=== PATIENT | female | born 1985 | race Caucasian/White ===

== ENCOUNTER 2017-03-26 22:16 | Emergency (ER) | payer BC ==
[~2017-03-26] VITALS: Ht 157.5 cm; Wt 116.0 kg
[2017-03-26 23:16] LABS: PATH.CAST-FLAG NOT PRESENT; SPERM-FLAG NOT PRESENT; SRC-FLAG NOT PRESENT; XTAL-FLAG NOT PRESENT; YLC-FLAG NOT PRESENT
[2017-03-26 23:21] LABS: BLOOD UREA NITROGEN 8 mg/dL (7-18)
[2017-03-27 00:49] VITALS: BP 112/74
== END 2017-03-27 00:51 | disposition home or self-care (01) ==
LOC: ED 23:59
DX: N30.00 Acute cystitis without hematuria (principal)
CPT/HCPCS: 36415; 71010; 80048; 81001; 82040; 84484; 84703; 85025; 93005

== ENCOUNTER 2018-09-27 03:05 | Day surgery (SDC) | payer BC, OTHER ==
[~2018-09-27] VITALS: Ht 160 cm; Wt 119.2 kg
[2018-09-27] MEDS ORDERED: HYDROcodone/APAP 5/325 TABLET ONE (03:25)
[2018-09-27] MEDS ORDERED: ONDANSETRON ODT 4 MG ONE (03:25)
[2018-09-27] MEDS ORDERED: MAALOX/HYOSCYAMINE/LIDOCAINE 45 ML BTL ONE (03:25)
[2018-09-27] MEDS ORDERED: ONDANSETRON ODT 4 MG PO ONE (03:30)
[2018-09-27] MEDS ORDERED: MAALOX/HYOSCYAMINE/LIDOCAINE 45 ML BTL PO ONE (03:30)
[2018-09-27] MEDS ORDERED: HYDROcodone/APAP 5/325 TABLET PO ONE (03:30)
[2018-09-27 03:37] LABS: BASOPHILS # (AUTO) 0.09 x10^3/uL (0-0.1); BASOPHILS % (AUTO) 1 % (0-1); EOSINOPHILS # (AUTO) 0.19 x10^3/uL (0-0.4); EOSINOPHILS % (AUTO) 2 % (1-7); LYMPHOCYTES # (AUTO) 3.81 x10^3/uL (1-3.4); LYMPHOCYTES % (AUTO) 31 % (22-44); MD NO; MEAN CORPUSCULAR HEMOGLOBIN 31.8 pg (27.0-34.8); MEAN CORPUSCULAR VOLUME 96.2 fL (80-100); MONOCYTES # (AUTO) 0.98 x10^3/uL (0.2-0.8); MONOCYTES % (AUTO) 8 % (2-9); NEUTROPHILS # (AUTO) 7.29 x10^3/uL (1.8-6.8); NEUTROPHILS % (AUTO) 59 % (42-75); PLATELET COUNT 273 x10^3/uL (130-400); RED BLOOD COUNT 4.64 x10^6/uL (3.82-5.3); RED CELL DISTRIBUTION WIDTH 13.6 % (9.6-15.2)
[2018-09-27 03:50] LABS: ALANINE AMINOTRANSFERASE 41 U/L (12-78); ALBUMIN 3.5 g/dL (3.4-5.0); ANION GAP 8 mmol/L (5-15); CALCIUM 8.6 mg/dL (8.5-10.1); CHLORIDE 108 mmol/L (98-107)
[2018-09-27 03:55] LABS: ALKALINE PHOSPHATASE 63 U/L (45-117); BILIRUBIN,TOTAL 0.5 mg/dL (0.2-1.0)
[2018-09-27] MEDS ORDERED: ONDANSETRON 2MG/ML, 2ML IVPush ONE (05:00)
[2018-09-27] MEDS ORDERED: SODIUM CHLORIDE FLUSH 10ML SYR IVF ONE (05:00)
[2018-09-27] MEDS ORDERED: MORPHINE SULFATE 4 MG/ML, 1ML IVPush PRN ×2 (05:00→11:00)
[2018-09-27] MEDS ORDERED: SODIUM CHLORIDE 0.9% 1,000ML IVBOLUS ONE (05:00)
[2018-09-27] MEDS ORDERED: SODIUM CHLORIDE 0.9% 1,000 ML IV ONE (05:08)
[2018-09-27] MEDS ORDERED: ONDANSETRON 2MG/ML, 2ML ONE ×2 (05:12→08:58)
[2018-09-27] MEDS ORDERED: CEFOTETAN PMX 1GM/50ML 50 ML ONE (05:13)
[2018-09-27] MEDS ORDERED: MORPHINE SULFATE 4 MG/ML, 1ML ONE ×2 (05:13→11:15)
[2018-09-27] MEDS ORDERED: SODIUM CHLORIDE FLUSH 10ML SYR IVF PRN (05:30)
[2018-09-27] MEDS ORDERED: ONDANSETRON 2MG/ML, 2ML IVPush PRN (05:30)
[2018-09-27] MEDS ORDERED: CEFOTETAN PMX 1GM/50ML 50 ML IV ONE (05:30)
[2018-09-27] MEDS ORDERED: HYDROmorphone 1 MG/ML, 1ML IVPush PRN (05:30)
[2018-09-27] MEDS ORDERED: PROMETHAZINE 25 MG/ML, 1ML IM PRN (05:30)
[2018-09-27 06:02] VITALS: BP 112/76
[2018-09-27] MEDS ORDERED: HYDROmorphone 2 MG/ML, 1ML ONE (06:16)
[2018-09-27 07:38] VITALS: BP 101/62
[2018-09-27] MEDS ORDERED: FENTANYL PF 250 MCG/5ML ONE (08:57)
[2018-09-27] MEDS ORDERED: MIDAZOLAM 1 MG/ML, 2ML ONE (08:57)
[2018-09-27] MEDS ORDERED: CEFAZOLIN 1,000 MG ONE (08:58)
[2018-09-27] MEDS ORDERED: SUCCINYLCHOLINE 20 MG/ML, 10ML ONE (08:58)
[2018-09-27] MEDS ORDERED: GLYCOPYRROLATE 0.2MG/1ML, 5ML ONE (08:58)
[2018-09-27] MEDS ORDERED: DEXAMETHASONE 4 MG/ML, 1ML ONE (08:58)
[2018-09-27] MEDS ORDERED: NEOSTIGMINE 1 MG/ML, 10ML ONE (08:58)
[2018-09-27] MEDS ORDERED: PROPOFOL 10 MG/ML, 20ML ONE (08:58)
[2018-09-27] MEDS ORDERED: ROCURONIUM 10MG/ML,5ML ONE (08:58)
[2018-09-27] MEDS ORDERED: BUPIVACAINE/PF 0.5% ONE ×2 (09:01→09:05)
[2018-09-27] MEDS ORDERED: EPINEPHRINE 1 MG/ML, 1ML ONE (09:01)
[2018-09-27] MEDS ORDERED: OXYcodone 5 MG/5 ML ORAL.SOL UDC ONE (10:59)
[2018-09-27] MEDS ORDERED: FENTANYL PF 100 MCG/2ML ONE (10:59)
[2018-09-27] MEDS ORDERED: DIAZEPAM 5 MG/ML, 2ML IVPush PRN (11:00)
[2018-09-27] MEDS ORDERED: ONDANSETRON 2MG/ML, 2ML IV PRN (11:00)
[2018-09-27] MEDS ORDERED: OXYcodone 5 MG/5 ML ORAL.SOL UDC PO PRN (11:00)
[2018-09-27] MEDS ORDERED: hydrALAzine 20 MG/ML, 1ML IV PRN (11:00)
[2018-09-27] MEDS ORDERED: LABETALOL 5MG/ML, 20ML IV PRN (11:00)
[2018-09-27] MEDS ORDERED: LORazepam 2 MG/ML, 1ML IVPush PRN (11:00)
[2018-09-27] MEDS ORDERED: ACETAMINOPHEN 325 MG TABLET PO PRN (11:00)
[2018-09-27] MEDS ORDERED: PROCHLORPERAZINE 5 MG/ML, 2ML IM PRN (11:00)
[2018-09-27] MEDS ORDERED: ONDANSETRON ODT 8 MG PO PRN (11:00)
[2018-09-27] MEDS: FENTANYL PF 100 MCG/2ML IV PRN ×2 (11:08→11:14)
[2018-09-27 12:05] VITALS: BP 119/76
[2018-09-27] MEDS ORDERED: OXYC-302 PO (12:12)
[2018-09-27 17:15] VITALS: BP 124/80
== END 2018-09-27 18:00 | disposition home or self-care (01) ==
LOC: ED 05:26 → EDIP 05:32 → UNDOADMIN 05:32 → OR 05:32 → EDIP 05:39 → 4NOR 05:39 → UNDODISIN 17:15 → OR 18:00
PROVIDERS: ATTEND Surgery
DX: K80.10 Calculus of gallbladder with chronic cholecystitis without obstruction (principal); E66.01 Morbid (severe) obesity due to excess calories; Z68.42 Body mass index [BMI] 45.0-49.9, adult; Z72.89 Other problems related to lifestyle
CPT/HCPCS: 36415; 47562; 76700; 80053; 83690; 84703; 85025; 86677; 88304; 93005; 96374; 96375; 99285; J0171; J0330; J0690; J1100; J1170; J2250; J2405; J2704; J2710; J3010; J3490; J7030; Q0162; G0378

== ENCOUNTER 2019-07-03 13:54 | Emergency (ER) | payer OTHER ==
[~2019-07-03] VITALS: Ht 160 cm; Wt 115.0 kg
[2019-07-03 13:58] VITALS: BP 120/78
== END 2019-07-03 15:32 | disposition home or self-care (01) ==
LOC: ED 14:37
DX: R19.7 Diarrhea, unspecified (principal); R11.0 Nausea
CPT/HCPCS: 36415; 80053; 84703; 85025; 99283

== ENCOUNTER → 2020-05-10 | Outpatient (CLI) | payer OTHER ==
[~2020-05-10] MED LIST: OMNIPAQUE 350 MG/ML, 100ML BOTTLE ONE; OXYC-302 PO
== END | disposition home or self-care (01) ==
LOC: CFH 08:18
PROVIDERS: ATTEND Surgery
DX: R10.9 Unspecified abdominal pain (principal); M25.78 Osteophyte, vertebrae; M48.061 Spinal stenosis, lumbar region without neurogenic claudication; Z90.49 Acquired absence of other specified parts of digestive tract
CPT/HCPCS: 74177; Q9967

== ENCOUNTER 2020-12-06 22:50 | Emergency (ER) | payer OTHER ==
[~2020-12-06] VITALS: Ht 160 cm; Wt 123.0 kg
[~2020-12-06 22:50] MED LIST changes: -OMNIPAQUE 350 MG/ML, 100ML BOTTLE ONE
[2020-12-06 23:49] LABS: ALANINE AMINOTRANSFERASE 41 U/L (12-78); ALBUMIN 3.5 g/dL (3.4-5.0); ANION GAP 5 mmol/L (5-15); CALCIUM 8.8 mg/dL (8.5-10.1); CHLORIDE 110 mmol/L (98-107); CREATININE 0.75 mg/dL (0.55-1.02)
[2020-12-06 23:51] LABS: ALKALINE PHOSPHATASE 72 U/L (45-117); BILIRUBIN,TOTAL 0.5 mg/dL (0.2-1.0); TOTAL PROTEIN 7.8 g/dL (6.4-8.2)
[2020-12-06 23:53] LABS: BASOPHILS % (AUTO) 1 % (0-1); EOSINOPHILS % (AUTO) 1 % (1-7); LYMPHOCYTES % (AUTO) 33 % (22-44); MEAN CORPUSCULAR HEMOGLOBIN 31.9 pg (27.0-34.8); MEAN PLATELET VOLUME 7.9 fL (7.4-10.4); MONOCYTES % (AUTO) 10 % (2-9); NEUTROPHILS % (AUTO) 56 % (42-75); PLATELET COUNT 258 x10^3/uL (130-400); RED BLOOD COUNT 4.49 x10^6/uL (3.82-5.3); RED CELL DISTRIBUTION WIDTH 13.4 % (9.6-15.2)
[2020-12-06 23:54] LABS: MD NO
--- NOTE | 2020-12-07 00:12 | NUR ---
PATIENT IN NAD. RESTING IN STRETCHER. FAMILY AT BEDSIDE.
[2020-12-07 00:56] VITALS: BP 117/68
== END 2020-12-07 01:07 | disposition home or self-care (01) ==
LOC: ED 12-07 01:04
DX: R20.2 Paresthesia of skin (principal); R51.9 Headache, unspecified; R94.31 Abnormal electrocardiogram [ECG] [EKG]
CPT/HCPCS: 36415; 70450; 80053; 85025; 93005; 99285